=== PATIENT | female | born 1960 | race Caucasian/White ===

== ENCOUNTER 2022-07-21 14:06 | Inpatient (IN) | payer OTHER ==
[~2022-07-21] VITALS: Ht 162.6 cm; Wt 141.1 kg
--- NOTE | 2022-07-21 14:21 | NUR ---
Pt seen and updated by . Reclining in bed NO obvious distress
--- NOTE | 2022-07-21 14:48 | NUR ---
COVID SPECIMEN COLLECTED AND SENT TO LAB.
--- NOTE | 2022-07-21 15:12 | NUR ---
MOVE SHEET SUBMITTED.
[2022-07-21] MEDS ORDERED: ONDANSETRON HCL/PF 4 MG/2 ML VIAL IV ONE (15:30)
--- NOTE | 2022-07-21 15:30 | NUR ---
C/o Nausea- Md aware given meds as ordered
[2022-07-21] MEDS ORDERED: ONDANSETRON HCL/PF 4 MG/2 ML VIAL ONE (15:32)
[2022-07-21 15:34] LABS: BASOPHILS # (AUTO) 0.1 K/uL (0.0-0.2); BASOPHILS % (AUTO) 0.9 % (0.0-2.0); EOSINOPHILS % (AUTO) 4.3 % (0.0-6.0); HEMATOCRIT 44 % (33-45); HEMOGLOBIN 14.2 g/dL (11.5-14.8); LYMPHOCYTES # (AUTO) 1.1 K/uL (0.8-4.8); LYMPHOCYTES % (AUTO) 14.6 % (20.0-44.0); MEAN CORPUSCULAR HGB CONC 32 g/dl (31.0-36.0); MEAN CORPUSCULAR VOLUME 92 fL (82-100); MONOCYTES # (AUTO) 0.3 K/uL (0.1-1.30); MONOCYTES % (AUTO) 4.2 % (2.0-12.0); NEUTROPHILS # (AUTO) 5.6 K/uL (1.8-8.9); PLATELET COUNT (AUTO) 190 K/uL (150-450); RED BLOOD CELL COUNT(AUTO) 4.83 MIL/uL (4.0-5.2); WHITE BLOOD COUNT (AUTO) 7.3 K/uL (4.3-11.0)
[2022-07-21 15:38] LABS: CALCIUM, SERUM 8.6 mg/dL (8.5-10.1); CARBON DIOXIDE 31 mmol/L (21-32); CHLORIDE 105 mmol/L (98-107); CREATININE 1.3 mg/dL (0.6-1.3); GLUCOSE 205 mg/dL (74-106); POTASSIUM 4.4 mmol/L (3.5-5.1); SODIUM SERUM 142 mmol/L (136-145); UREA NITROGEN, BLOOD 26 mg/dL (7-18)
--- NOTE | 2022-07-21 16:05 | NUR ---
[facility] CALLED AUTOTRANSFUSIONIST PAGED.
[2022-07-21] MEDS ORDERED: CLON0.5T4 PO (16:17)
[2022-07-21] MEDS ORDERED: BUSP30TA2 PO (16:17)
[2022-07-21] MEDS ORDERED: INSU100I26 SQ (16:17)
[2022-07-21] MEDS ORDERED: ATOR80TA PO (16:17)
[2022-07-21] MEDS ORDERED: LEVO50TA8 PO (16:17)
[2022-07-21] MEDS ORDERED: GABA-532 PO (16:17)
[2022-07-21] MEDS ORDERED: MORPHINE SULFATE INJ 4 MG/ML DISP.SYRIN ONE (16:17)
[2022-07-21] MEDS ORDERED: CLOP75TA15 PO (16:17)
[2022-07-21] MEDS ORDERED: ASPI-1420 PO (16:17)
[2022-07-21] MEDS ORDERED: CARV12.52 PO (16:17)
[2022-07-21] MEDS ORDERED: FLUO40CA49 PO (16:17)
[2022-07-21] MEDS ORDERED: AMIT50TA3 PO (16:17)
[2022-07-21] MEDS ORDERED: MORPHINE SULFATE INJ 4 MG/ML DISP.SYRIN IV ONE (16:30)
--- NOTE | 2022-07-21 16:30 | NUR ---
C/p persistent pain - MD notified w/orders. Medicated
--- NOTE | 2022-07-21 16:38 | NUR ---
GOT BED 314-1
--- NOTE | 2022-07-21 16:53 | NUR ---
Dozing NO obvious distress. Pt going to 314-2. Report to Jazmín. Vss NO acute changes
[2022-07-21] MEDS ORDERED: Z GUARD REMEDY 4 OZ OINT TP PRN (18:30)
[2022-07-21] MEDS ORDERED: ONDANSETRON HCL/PF 4 MG/2 ML VIAL IVP PRN (18:30)
[2022-07-21] MEDS ORDERED: MAG HYDROX/AL HYDROX/SIMETH 30 ML UDC PO PRN (18:30)
[2022-07-21] MEDS ORDERED: DEXTROSE 50%-WATER 50 ML DISP.SYRIN IV PRN (18:30)
[2022-07-21] MEDS ORDERED: MAGNESIUM HYDROXIDE 30 ML UDC PO PRN (18:30)
[2022-07-21] MEDS ORDERED: ACETAMINOPHEN 325 MG TABLET PO PRN (18:30)
[2022-07-21] MEDS ORDERED: *INSULIN REGULAR(HUMULIN R)HUM 100 UNIT/ML VIAL SQ PRN (18:30)
--- NOTE | 2022-07-21 19:15 | NUR ---
MICROFICHE CAMERA OPERATOR OPENING NOTE PATIENT IS IN BED, ALERT AND ORIENTED, AO X 4. SHE IS ON 2 LPM OXYGEN VIA NC, NO S/S OF SOB OR DISTRESS. TOLERATED WELL. IV ACCESS IS AT HER RIGHT AC, #20G, SL. FLUSHED WITH 10 CC NS. PATENT AND INTACT. PATIENT IS ON TELE MONITOR, HEART RHYTHM IS SR AT 70S. PATIENT DENIES OF HAVING PAIN AT THIS MOMENT. SAFETY MEASURES ARE IN PLACE: BED IN LOWEST AND LOCKED POSITION; SIDE RAILS UP X 2; CALL LIGHT AND TABLE ARE IN REACH. WILL CONTINUE MONITORING PATIENT'S CONDITION AND PROVIDE THE CARE SHE NEEDS.
[2022-07-21] MEDS ORDERED: MORPHINE SULFATE INJ 2 MG/ML DISP.SYRIN IV PRN (19:30)
[2022-07-21 20:00] VITALS: BP 125/65
[2022-07-21] MEDS: clonazePAM 1 MG TABLET PO SCH (21:45)
[2022-07-21] MEDS: ATORVASTATIN 40 MG TABLET PO SCH (21:45)
[2022-07-21] MEDS: ZOLPIDEM TARTRATE 5 MG TABLET PO PRN (21:54)
[2022-07-21] MEDS ORDERED: INSULIN GLARGINE,BASAGLAR 100 UNIT/ML INSULN.PEN SQ SCH (22:00)
[2022-07-21] MEDS: BLOOD SUGAR DIAGNOSTIC 1 EACH STRIP VI SCH (22:54)
[2022-07-21] MEDS: INSULIN GLARGINE, 100 UNIT/ML CARTRIDGE SQ SCH (23:04)
[2022-07-21] MEDS: MORPHINE SULFATE INJ 2 MG/ML DISP.SYRIN IV PRN (23:55)
--- NOTE | 2022-07-21 23:55 | NUR ---
X RAY TECH NOTE PATIENT C/O OF HAVING PAIN AT HER NECK AND SHOULDER; AND REQUESTED TO CHANGE HER MORPHINE GIVEN FREQUENCY INTO Q 4 HR. TEXT MD AND RECEIVED THE ORDER.
[2022-07-22] VITALS: BP 123/69
[2022-07-22 03:46] LABS: BASOPHILS % (MANUAL) 0 % (0.0-2.0); EOSINOPHILS % (MANUAL) 2 % (0-4); LYMPHOCYTES % (MANUAL) 13 % (16-48); MONOCYTES % (MANUAL) 5 % (0-11.0); NEUTROPHILS % (MANUAL) 80 (42-76)
[2022-07-22 04:00] VITALS: BP 146/79
[2022-07-22] MEDS: MORPHINE SULFATE INJ 2 MG/ML DISP.SYRIN IV PRN ×4 (04:18→20:29)
[2022-07-22] MEDS: INSULIN REGULAR, HUMAN 100 UNIT/ML 3 ML VIAL SQ PRN ×2 (06:41→21:42)
[2022-07-22 06:50] LABS: BASOPHILS % (AUTO) 0.6 % (0.0-2.0); EOSINOPHILS % (AUTO) 4.8 % (0.0-6.0); HEMATOCRIT 42 % (33-45); HEMOGLOBIN 13.5 g/dL (11.5-14.8); LYMPHOCYTES # (AUTO) 1.2 K/uL (0.8-4.8); LYMPHOCYTES % (AUTO) 15.8 % (20.0-44.0); MEAN CORPUSCULAR HGB CONC 32 g/dl (31.0-36.0); MEAN CORPUSCULAR VOLUME 93 fL (82-100); MONOCYTES # (AUTO) 0.4 K/uL (0.1-1.30); MONOCYTES % (AUTO) 5.4 % (2.0-12.0); NEUTROPHILS # (AUTO) 5.4 K/uL (1.8-8.9); NEUTROPHILS % (AUTO) 73.4 % (43.0-81.0); PLATELET COUNT (AUTO) 156 K/uL (150-450); RED BLOOD CELL COUNT(AUTO) 4.55 MIL/uL (4.0-5.2); WHITE BLOOD COUNT (AUTO) 7.4 K/uL (4.3-11.0)
--- NOTE | 2022-07-22 06:55 | NUR ---
MACHINE COIL ASSEMBLER CLOSING NOTE PATIENT IS IN BED SLEEPING. SHE IS ON 2 LPM OXYGEN VIA NC, NO S/S OF SOB OR DISTRESS. TOLERATED WELL. IV ACCESS IS AT HER RIGHT AC, #20G, SL. PATENT AND INTACT. PATIENT IS ON TELE MONITOR, HEART RHYTHM IS SR AT 70S. PATIENT DENIES OF HAVING PAIN NOW. SAFETY MEASURES ARE IN PLACE: BED IN LOWEST AND LOCKED POSITION; SIDE RAILS UP X 2; CALL LIGHT AND TABLE ARE IN REACH. WILL ENDORSE NEXT SHIFT NURSE FOR CONTINUING PATIENT CARE.
[2022-07-22] MEDS: BLOOD SUGAR DIAGNOSTIC 1 EACH STRIP VI SCH ×4 (07:02→21:50)
[2022-07-22 07:24] LABS: CALCIUM, SERUM 8.2 mg/dL (8.5-10.1); CREATININE 1.2 mg/dL (0.6-1.3); MAGNESIUM 1.5 mg/dL (1.8-2.4); PHOSPHORUS 4.2 mg/dL (2.5-4.9); POTASSIUM 4.4 mmol/L (3.5-5.1)
[2022-07-22 08:00] VITALS: BP 116/69
[2022-07-22 08:00] LABS: THYROID STIMULATING HORMONE 2.183 uIU/mL (0.358-3.74)
[2022-07-22] MEDS ORDERED: busPIRone HCL 10 MG TABLET PO SCH (09:00)
[2022-07-22] MEDS: LEVOTHYROXINE SODIUM 50 MCG TABLET PO SCH (09:21)
[2022-07-22] MEDS: ASPIRIN EC 81 MG TABLET.DR PO SCH (09:22)
[2022-07-22] MEDS: PANTOPRAZOLE 40 MG TABLET.DR PO SCH (09:22)
[2022-07-22] MEDS: FLUOXETINE HCL 20 MG CAPSULE PO SCH (09:22)
[2022-07-22] MEDS: busPIRone 5 MG TABLET PO SCH ×2 (09:22→20:29)
[2022-07-22] MEDS: CLOPIDOGREL BISULFATE 75 MG TABLET PO SCH (09:22)
[2022-07-22] MEDS: CARVEDILOL 12.5 MG TABLET PO SCH ×2 (09:23→17:37)
[2022-07-22] MEDS: GABAPENTIN 100 MG CAPSULE PO SCH ×2 (09:28→17:37)
[2022-07-22] MEDS ORDERED: MAGNESIUM OXIDE 400 MG TABLET PO ONE (09:30)
[2022-07-22 16:00] VITALS: BP 124/69
[2022-07-22] MEDS: NITROGLYCERIN 0.1 MG/HR PATCH.TD24 TD SCH (18:11)
[2022-07-22] MEDS: AMITRIPTYLINE HCL 25 MG TABLET PO SCH (18:11)
--- NOTE | 2022-07-22 19:40 | NUR ---
DIRECTOR MARKETING OPENING NOTE RECEIVED PATIENT IN BED, AWAKE. PATIENT ALERT AND ORIENTED X 4, ABLE TO VERBALIZE NEEDS. ON 2 LPM OXYGEN VIA NC, NO SOB OR RESPIRATORY DISTRESS NOTED. IV ACCESS TO RIGHT AC, #20G, SL. IV PATENT AND INTACT. PATIENT IS ON TELE MONITOR, HEART RHYTHM IS SR AT 70. PATIENT C/O PAIN TO SHOULDERS, WITH PAIN MED IN PLACE. SAFETY MEASURES MAINTAINED: BED IN LOWEST AND LOCKED POSITION; SIDE RAILS UP X 2; CALL LIGHT AND TABLE ARE IN REACH. WILL CONTINUE TO MONITOR PATIENT.
[2022-07-22 20:00] VITALS: BP 145/79
[2022-07-22] MEDS: INSULIN GLARGINE, 100 UNIT/ML CARTRIDGE SQ SCH (21:38)
[2022-07-22] MEDS: clonazePAM 1 MG TABLET PO SCH (21:43)
[2022-07-22] MEDS: ATORVASTATIN 40 MG TABLET PO SCH (21:54)
[2022-07-22] MEDS: ZOLPIDEM TARTRATE 5 MG TABLET PO PRN (23:06)
[2022-07-23] MEDS: MORPHINE SULFATE INJ 2 MG/ML DISP.SYRIN IV PRN ×5 (00:30→20:29)
[2022-07-23 06:28] LABS: BASOPHILS % (AUTO) 0.3 % (0.0-2.0); EOSINOPHILS % (AUTO) 4.8 % (0.0-6.0); HEMATOCRIT 43 % (33-45); HEMOGLOBIN 13.7 g/dL (11.5-14.8); LYMPHOCYTES # (AUTO) 1.1 K/uL (0.8-4.8); MEAN CORPUSCULAR HGB CONC 32 g/dl (31.0-36.0); MEAN CORPUSCULAR VOLUME 93 fL (82-100); MONOCYTES # (AUTO) 0.3 K/uL (0.1-1.30); MONOCYTES % (AUTO) 5.1 % (2.0-12.0); NEUTROPHILS % (AUTO) 73.8 % (43.0-81.0); PLATELET COUNT (AUTO) 155 K/uL (150-450); RED BLOOD CELL COUNT(AUTO) 4.59 MIL/uL (4.0-5.2); WHITE BLOOD COUNT (AUTO) 6.8 K/uL (4.3-11.0)
[2022-07-23 06:42] LABS: CREATININE 1.1 mg/dL (0.6-1.3); MAGNESIUM 1.6 mg/dL (1.8-2.4); PHOSPHORUS 3.7 mg/dL (2.5-4.9); POTASSIUM 4.4 mmol/L (3.5-5.1)
--- NOTE | 2022-07-23 07:10 | NUR ---
COMMUNICATIONS AND SIGNALS SUPERVISOR CLOSING NOTE PATIENT IS IN BED SLEEPING. SHE IS ON 2 LPM OXYGEN VIA NC, NO S/S OF SOB OR DISTRESS. TOLERATED WELL. IV ACCESS IS TO RIGHT AC, #20G, SL. PATENT AND INTACT. PATIENT IS ON TELE MONITOR, HEART RHYTHM IS SR AT 70S. PATIENT DENIES OF HAVING PAIN NOW. SAFETY MEASURES ARE IN PLACE: BED IN LOWEST AND LOCKED POSITION; SIDE RAILS UP X 2; CALL LIGHT AND TABLE ARE IN REACH. WILL ENDORSE NEXT SHIFT NURSE FOR MOUNIKA.
[2022-07-23] MEDS: INSULIN REGULAR, HUMAN 100 UNIT/ML 3 ML VIAL SQ PRN (07:12)
[2022-07-23] MEDS: BLOOD SUGAR DIAGNOSTIC 1 EACH STRIP VI SCH ×4 (07:38→21:38)
[2022-07-23 08:00] VITALS: BP 133/75
[2022-07-23] MEDS: FLUOXETINE HCL 20 MG CAPSULE PO SCH (09:48)
[2022-07-23] MEDS: ASPIRIN EC 81 MG TABLET.DR PO SCH (09:48)
[2022-07-23] MEDS: CARVEDILOL 12.5 MG TABLET PO SCH ×2 (09:49→17:14)
[2022-07-23] MEDS: GABAPENTIN 100 MG CAPSULE PO SCH ×2 (09:49→17:15)
[2022-07-23] MEDS: CLOPIDOGREL BISULFATE 75 MG TABLET PO SCH (09:49)
[2022-07-23] MEDS: busPIRone 5 MG TABLET PO SCH ×2 (09:49→21:37)
[2022-07-23] MEDS ORDERED: MAGNESIUM OXIDE 400 MG TABLET PO ONE (10:00)
[2022-07-23] MEDS: PANTOPRAZOLE 40 MG TABLET.DR PO SCH (10:20)
[2022-07-23] MEDS: LEVOTHYROXINE SODIUM 50 MCG TABLET PO SCH (10:20)
[2022-07-23 12:00] VITALS: BP 131/76
[2022-07-23 16:00] VITALS: BP 114/86
[2022-07-23] MEDS: NITROGLYCERIN 0.1 MG/HR PATCH.TD24 TD SCH (17:15)
[2022-07-23] MEDS: AMITRIPTYLINE HCL 25 MG TABLET PO SCH (17:16)
[2022-07-23 20:37] VITALS: BP 136/66
--- NOTE | 2022-07-23 20:45 | NUR ---
RN NOTES - TRANSFER OF CARE RECEIVED REPORT FROM [facility]. RECEIVED PATIENT IN BED SLEEPING. ON 2 LPM OXYGEN VIA NC, NO S/S OF SOB OR DISTRESS. TOLERATED WELL. IV ACCESS IS TO RIGHT AC, #20G, SL. PATENT AND INTACT. PATIENT IS ON TELE MONITOR, HEART RHYTHM IS SR AT 70S. PATIENT COMPLAINS OF PAIN, RATED PAIN 8/10. SAFETY MEASURES ARE IN PLACE: BED IN LOWEST AND LOCKED POSITION; SIDE RAILS UP X 2; CALL LIGHT AND TABLE ARE IN REACH. WILL CONTINUE TO MONITOR
--- NOTE | 2022-07-23 21:06 | NUR ---
RN NOTES RECEIVED PHONE ORDER: MORPHINE DOSE CHANGED FROM 2 TO 4MG EVERY 4 HOURS FOR PAIN. CHARGE NURSE MADE AWARE. Addendum: 07/23/22 at 2326 by RENA STUART RN PATIENT WAS GIVEN MORPHINE 4MG (TOTAL) PRN ORDERED. TOLERATED WELL.
[2022-07-23] MEDS ORDERED: MORPHINE SULFATE INJ 2 MG/ML DISP.SYRIN IV ONE (21:30)
[2022-07-23] MEDS: ATORVASTATIN 40 MG TABLET PO SCH (21:36)
[2022-07-23] MEDS: clonazePAM 1 MG TABLET PO SCH (21:36)
[2022-07-23] MEDS: INSULIN GLARGINE, 100 UNIT/ML CARTRIDGE SQ SCH (22:21)
--- NOTE | 2022-07-23 22:40 | NUR ---
RN NOTES PATIENT REQUESTED FOR SLEEPING PILL. SHE WANTED TO SLEEP VERBALIZED. GIVEN AMBIEN PRN. TOLERATED WELL. WILL CONT TO MONITOR
[2022-07-23] MEDS: ZOLPIDEM TARTRATE 5 MG TABLET PO PRN (22:41)
[2022-07-24 00:41] VITALS: BP 114/64
[2022-07-24 04:57] VITALS: BP 142/68
[2022-07-24] MEDS: MORPHINE SULFATE INJ 2 MG/ML DISP.SYRIN IV PRN ×4 (05:27→16:12)
[2022-07-24] MEDS: BLOOD SUGAR DIAGNOSTIC 1 EACH STRIP VI SCH ×3 (06:27→17:24)
[2022-07-24] MEDS: INSULIN REGULAR, HUMAN 100 UNIT/ML 3 ML VIAL SQ PRN ×3 (06:31→17:29)
--- NOTE | 2022-07-24 06:39 | NUR ---
COMPOUNDING PHARMACY TECHNICIAN CLOSING NOTE PATIENT LYING ASLEEP IN BED. ON 2 LPM OXYGEN VIA NC, NO S/S OF SOB OR DISTRESS. TOLERATED WELL. IV ACCESS IS TO RIGHT AC, #20G, SL. PATENT AND INTACT. ATTACHED TO TELE MONITOR, HEART RHYTHM IS SR HR 70. SAFETY MEASURES MAINTAINED: BED IN LOWEST AND LOCKED POSITION; SIDE RAILS UP X 2; CALL LIGHT AND TABLE ARE IN REACH. WILL ENDORSE NEXT SHIFT NURSE FOR MOUNIKA.
--- NOTE | 2022-07-24 08:00 | NUR ---
RN OPENING NOTE- PT IN BED, AWAKE. ALERT AND ORIENTED X 4, ABLE TO VERBALIZE NEEDS. ON 3 LPM OXYGEN VIA NC, NO SOB OR RESPIRATORY DISTRESS NOTED. IV ACCESS TO RIGHT AC, #20G, SL. PATIENT IS ON TELE MONITOR, HEART RHYTHM IS SR AT 76. PATIENT C/O PAIN, WILL ADMINISTER RX. SAFETY MEASURES MAINTAINED: BED IN LOWEST AND LOCKED POSITION; SIDE RAILS UP X 2; CALL LIGHT AND TABLE ARE IN REACH. WILL CONTINUE TO MONITOR / ASSIST
[2022-07-24 08:07] LABS: BASOPHILS % (AUTO) 0.3 % (0.0-2.0); EOSINOPHILS % (AUTO) 5.1 % (0.0-6.0); HEMATOCRIT 43 % (33-45); HEMOGLOBIN 13.9 g/dL (11.5-14.8); LYMPHOCYTES # (AUTO) 0.9 K/uL (0.8-4.8); LYMPHOCYTES % (AUTO) 15.7 % (20.0-44.0); MEAN CORPUSCULAR HGB CONC 33 g/dl (31.0-36.0); MEAN CORPUSCULAR VOLUME 92 fL (82-100); MONOCYTES # (AUTO) 0.3 K/uL (0.1-1.30); MONOCYTES % (AUTO) 4.7 % (2.0-12.0); NEUTROPHILS # (AUTO) 4.4 K/uL (1.8-8.9); NEUTROPHILS % (AUTO) 74.2 % (43.0-81.0); PLATELET COUNT (AUTO) 160 K/uL (150-450); RED BLOOD CELL COUNT(AUTO) 4.64 MIL/uL (4.0-5.2); WHITE BLOOD COUNT (AUTO) 5.9 K/uL (4.3-11.0)
[2022-07-24 08:09] LABS: CALCIUM, SERUM 8.6 mg/dL (8.5-10.1); CREATININE 1.1 mg/dL (0.6-1.3); MAGNESIUM 1.6 mg/dL (1.8-2.4); PHOSPHORUS 3.7 mg/dL (2.5-4.9); POTASSIUM 4.4 mmol/L (3.5-5.1)
[2022-07-24] MEDS: ASPIRIN EC 81 MG TABLET.DR PO SCH (08:10)
[2022-07-24] MEDS: PANTOPRAZOLE 40 MG TABLET.DR PO SCH (08:10)
[2022-07-24] MEDS: busPIRone 5 MG TABLET PO SCH (08:12)
[2022-07-24] MEDS: FLUOXETINE HCL 20 MG CAPSULE PO SCH (08:13)
[2022-07-24] MEDS: LEVOTHYROXINE SODIUM 50 MCG TABLET PO SCH (08:16)
[2022-07-24] MEDS: CLOPIDOGREL BISULFATE 75 MG TABLET PO SCH (08:19)
[2022-07-24] MEDS: CARVEDILOL 12.5 MG TABLET PO SCH ×2 (08:20→17:00)
[2022-07-24] MEDS: GABAPENTIN 100 MG CAPSULE PO SCH ×2 (08:21→17:00)
[2022-07-24 08:27] VITALS: BP 108/62
[2022-07-24 08:34] VITALS: BP 148/82
[2022-07-24] MEDS ORDERED: MAGNESIUM OXIDE 400 MG TABLET PO ONE (10:00)
[2022-07-24] MEDS ORDERED: IOHEXOL-350 100 ML VIAL IV ONE (11:33)
[2022-07-24] MEDS ORDERED: CT SWABBABLE VALVE TRANS SET 1 EA INFUS.SET MC ONE (11:34)
[2022-07-24] MEDS ORDERED: IV NS 0.9% 250 ML IV ONE (11:34)
[2022-07-24] MEDS ORDERED: HYDROCODONE/APAP 10/325MG TABLET PO PRN ×2 (12:00→14:00)
[2022-07-24] MEDS ORDERED: NITROGLYCERIN 0.4 MG/TAB BOTTLE SL ONE (12:30)
[2022-07-24] MEDS ORDERED: METOPROLOL TARTRATE INJ 5 MG/5 ML AMPUL IVP PRN (12:30)
[2022-07-24 16:00] VITALS: BP 126/70
[2022-07-24] MEDS: AMITRIPTYLINE HCL 25 MG TABLET PO SCH (18:17)
[2022-07-24 18:18] VITALS: BP 126/70
[2022-07-24] MEDS: NITROGLYCERIN 0.1 MG/HR PATCH.TD24 TD SCH (18:18)
--- NOTE | 2022-07-24 18:23 | NUR ---
RN NOTE- CORONARY ANGIO COMPLETED. CARDIOLOGY CLEARED FOR DC PER DR BUCHANAN. CM NOTIFIED. BARIATRIC GURNEY OBTAINED FOR P/U AT 2300 TO TRANSPORT TO ASSISTED LIVING RETURN. PT AWARE. DC COMPLETED.
--- NOTE | 2022-07-24 18:54 | NUR ---
RN PATIENT DISCHARGE NOTE Patient's peripheral IVs and wrist band removed. Given home care discharge instructions and was able to verballly teach back her instructions in her own words. Patient accounted for all of her personal belongings. Departed hospital at 18:58 hours via wheelchair to [employer] taxi bound for her assisted living facility home.
== END 2022-07-24 18:55 | DRG 198 ==
LOC: ER 14:08 → TELE 16:54
PROVIDERS: ADMIT Student in an Organized Health Care Education/Training Program; ATTEND Student in an Organized Health Care Education/Training Program
DX: I25.110 Atherosclerotic heart disease of native coronary artery with unstable angina pectoris (principal); Z68.43 Body mass index [BMI] 50.0-59.9, adult; E11.9 Type 2 diabetes mellitus without complications; Z95.5 Presence of coronary angioplasty implant and graft; Z20.822 Contact with and (suspected) exposure to COVID-19; I10 Essential (primary) hypertension; E78.5 Hyperlipidemia, unspecified; I25.2 Old myocardial infarction; Z95.810 Presence of automatic (implantable) cardiac defibrillator; Z88.5 Allergy status to narcotic agent; F10.11 Alcohol abuse, in remission; Z79.02 Long term (current) use of antithrombotics/antiplatelets; Z79.82 Long term (current) use of aspirin; Z79.4 Long term (current) use of insulin; Z79.899 Other long term (current) drug therapy; Z72.0 Tobacco use; Z91.199 Patient's noncompliance with other medical treatment and regimen due to unspecified reason; Y90.9 Presence of alcohol in blood, level not specified; Z86.39 Personal history of other endocrine, nutritional and metabolic disease
CPT/HCPCS: 36415; 71045-TC; 75574; 80048-TC; 80061-TC; 82962-TC; 83735-TC; 84100-TC; 84443-TC; 84484-TC; 85025-TC; 87081-TC; 93307-TC; C9803; G0378; J1815; J2270; J2405; J7050; Q9967